=== PATIENT | male | born 1940 | race African-American/Black ===

== ENCOUNTER 2023-02-17 12:26 | Emergency (ER) | payer OTHER ==
[2023-02-17] MEDS ORDERED: Labetalol HCl 100 MG/20 ML VIAL ONE (13:20)
[2023-02-17 13:45] LABS: ALT (SGPT) 32 U/L (8-55); AST (SGOT) 46 U/L (5-34); Albumin 3.2 g/dL (3.4-4.8); Alkaline Phosphatase 96 U/L (40-110); Anion Gap 14 mmol/L (10-20); BUN (Urea Nitrogen) 14 mg/dL (8.4-25.7); Bilirubin, Total 0.4 mg/dL (0.2-1.2); Calc. Creatinine Clearance 0 mL/min (70-130); Calcium 8.9 mg/dL (7.8-10.44); Carbon Dioxide 23 mmol/L (23-31); Chloride 108 mmol/L (98-107); Estimated GFR 77; Globulin 5.2 g/dL (2.4-3.5); Glucose 101 mg/dL (83-110); Potassium 3.8 mmol/L (3.5-5.1); Protein, Total 8.4 g/dL (5.8-8.1); Sodium 141 mmol/L (136-145)
[2023-02-17 14:04] LABS: Mean Corpuscular Volume 93.8 fl (81.2-95.1); Mean Platelet Volume 11.4 fl (7.4-10.4); Platelet Count 191 10x3/uL (150-450); RBC Distribution Width 14.8 % (11.5-14.5); Red Blood Cell (RBC) Count 4.48 10x6/uL (4.32-5.72); White Blood Cell (WBC) Count 6.4 10x3/uL (3.5-10.5)
[2023-02-17 15:10] LABS: MDiff Complete? YES
[2023-02-17 15:13] LABS: Eosinophils 19 % (0-10); Lymphocytes 8 % (21-51); Monocytes 2 % (0-10); Neutrophil 71 % (42-75)
[2023-02-17 15:16] LABS: Anisocytosis SLIGHT = 6-15 cells (100X) (0-5/hpf); Platelet Adequacy Comment Appears Adequate
== END 2023-02-17 15:26 ==
LOC: CSHERS 12:26
DX: L97.529 Non-pressure chronic ulcer of other part of left foot with unspecified severity (principal); I10 Essential (primary) hypertension
CPT/HCPCS: 80053; 85025; 86140; 96374